=== PATIENT | female | born 1955 ===

== ENCOUNTER → 2021-06-14 | Outpatient (CLI) | payer SELFPAY ==
[2021-06-14 16:48] LABS: Prothrombin Time Results 71.5 Sec (9.7-11.5)
[2021-06-14 16:55] LABS: CHOL/HDL RATIO 5.8; Cholesterol 192 mg/dL (50-200); HDL Cholesterol 33 mg/dL (>39); LDL/HDL RATIO 3.5; Low Density Lipoprotein Chol 115 mg/dL (0-110); Triglycerides 218 mg/dL (30-160); Very Low Density Lipoprot Chol 43 mg/dL (6-32)
[2021-06-14 16:59] LABS: International Normalized Ratio 7.42
[2021-06-14 17:00] LABS: Albumin, Blood 3.7 g/dL (3.4-5.0); Albumin/Globulin Ratio 0.9 (0.8-1.8); Bilirubin, Total 0.7 mg/dL (0.1-1.0); Bun/Creatinine Ratio 12.7 (12.0-20.0); Calcium, Blood 8.8 mg/dL (8.5-10.1); Creatinine, Blood 1.02 mg/dL (0.40-1.00); Potassium, Blood 3.8 mmol/L (3.5-5.5); Total Protein, Blood 7.7 g/dL (6.4-8.2)
== END ==
LOC: OLS 13:25 → LAB SHORT 13:25 → LAB 13:25
PROVIDERS: Physician Assistant
DX: Z13.6 Encounter for screening for cardiovascular disorders (principal); Z95.2 Presence of prosthetic heart valve
CPT/HCPCS: 36415; 80053; 80061; 85610